=== PATIENT | male | born 1975 | race Caucasian/White ===

== ENCOUNTER → 2017-09-20 | Outpatient (CLI) | payer OTHER ==
[~2017-09-20] MED LIST: ALBIPROI INH; ALBU90OI INH; AMOCLA875 PO; AMOX500 PO; AZIT500 PO; AZOR; Acidophilus La100 GM PO; BP MED; BP MEDICATION; CARI350 PO; CEPH500 PO; CLIN300 PO; CODGUAEL PO; CYCL10 PO; DIAZ5 PO; DOXY100 PO; DOXY100T53 PO; ERYT.5TO OD; GATI5OPSO OD; GENT.3OPSA OD; HYDACE5 PO; HYDACE5325 PO; IBUP600 PO; IBUP800; IBUP800 PO; KETO.5OPSO OD; LISI5 PO; NAPR500 PO; NAPR550 PO; Norco 5-325 Ta1 EACH PO; OXYACE5T PO; OXYACE7.5T PO; OXYC10TA19 PO; PENVK500 PO; PRED10 PO; PRED20 PO; PROM25 PO; RXCEPH500 PO; RXCLIN PO; RXHYD5325 PO; RXHYDACE PO; RXOXYACE PO; SULTRIDS PO; THIA100 PO; TRAM50 PO; Zithromax250 MG PO
[2017-09-20 16:29] LABS: Protein, Urine Quantitative 9.7 mg/dL (0.0-11.9)
[2017-09-20 16:32] LABS: Microalbumin, Urine Quant. 5.34 mg/L (0.000-20.000)
== END | disposition home or self-care (01) ==
LOC: LAB SHORT 05:30 → LAB 05:30 → LAB FUT 09-18 14:55
PROVIDERS: Internal Medicine Nephrology
DX: N18.2 Chronic kidney disease, stage 2 (mild) (principal); D63.1 Anemia in chronic kidney disease; N25.81 Secondary hyperparathyroidism of renal origin; E55.9 Vitamin D deficiency, unspecified; E78.00 Pure hypercholesterolemia, unspecified; R76.8 Other specified abnormal immunological findings in serum; R94.5 Abnormal results of liver function studies; Z90.5 Acquired absence of kidney
CPT/HCPCS: 81050; 82043; 84156

== ENCOUNTER 2018-10-01 13:54 | Emergency (ER) | payer OTHER ==
[~2018-10-01] VITALS: Ht 182.9 cm; Wt 72.6 kg
[2018-10-01] MEDS ORDERED: CYCL10 PO (15:34)
[2018-10-01] MEDS ORDERED: IBUP600 PO (15:34)
[2018-10-01] MEDS ORDERED: Voltaren100 GM TOP (15:34)
== END 2018-10-01 15:47 | disposition home or self-care (01) ==
LOC: ER 13:54
DX: M54.9 Dorsalgia, unspecified (principal); F17.210 Nicotine dependence, cigarettes, uncomplicated
CPT/HCPCS: 72040; 72070; 96372; 99283-25; J1885

== ENCOUNTER 2019-05-08 22:41 | Emergency (ER) | payer OTHER ==
[~2019-05-08] VITALS: Ht 182.9 cm; Wt 70.3 kg
[~2019-05-08 22:41] MED LIST changes: +Voltaren100 GM TOP
[2019-05-08 23:07] LABS: BASOPHILS ABSOLUTE AUTO 0.06 K/mm3 (0.00-0.23); BASOPHILS PERCENT AUTO 1 % (0-2); EOSINOPHILS ABSOLUTE AUTO 0.15 K/mm3 (0.00-0.68); EOSINOPHILS PERCENT AUTO 2 % (0-6); Hematocrit 38.9 % (37.0-53.0); Hemoglobin 12.8 g/dL (13.5-17.5); IMMATURE GRAN ABSOLUTE AUTO 0.02 K/mm3 (0.00-0.10); IMMATURE GRAN PERCENT AUTO 0 % (0-1); LYMPHOCYTES ABSOLUTE AUTO 3.18 K/mm3 (0.84-5.20); LYMPHOCYTES PERCENT AUTO 37 % (21-46); MONOCYTES ABSOLUTE AUTO 1.01 K/mm3 (0.16-1.47); MONOCYTES PERCENT AUTO 12 % (4-13); Mean Corpuscular HGB 29.8 pg (26.0-34.0); Mean Corpuscular HGB Conc 32.9 g/dL (31.5-36.5); Mean Corpuscular Volume 91 fL (80-100); Mean Platelet Volume 9.8 fL (9.1-12.4); NEUTROPHILS ABSOLUTE AUTO 4.14 K/mm3 (1.96-9.15); NEUTROPHILS PERCENT AUTO 48 % (41-73); Platelet Count 266 K/mm3 (150-400); Red Blood Cell Count 4.29 M/mm3 (4.30-5.90); White Blood Cell Count 8.56 K/mm3 (4.00-11.30)
[2019-05-08 23:23] LABS: International Normalized Ratio 0.99; Prothrombin Time Results 10.5 Sec (9.7-11.5)
[2019-05-08 23:28] LABS: Alanine Aminotransfer (ALT/SGP 37 U/L (12-78); Albumin, Blood 3.4 g/dL (3.4-5.0); Alk Phos 99 U/L (50-136); Anion Gap 10 mmol/L (6-16); Aspartate Aminotrans (AST/SGOT 27 U/L (12-37); Bilirubin, Total 0.6 mg/dL (0.1-1.0); Blood Urea Nitrogen 29 mg/dL (8-24); Bun/Creatinine Ratio 18.8 (12.0-20.0); CO2, Blood 23 mmol/L (21-32); Calcium, Blood 8.6 mg/dL (8.5-10.1); Chloride, Blood 109 mmol/L (98-108); Creatinine, Blood 1.54 mg/dL (0.60-1.20); Ethanol (Alcohol), Blood, Med <3 mg/dL; Globulin, Blood 3.3 g/dL (2.2-4.0); Glomerular Filtration Rate 52 (60-); Glucose, Blood 83 mg/dL (70-99); Potassium, Blood 3.7 mmol/L (3.5-5.5); Sodium, Blood 142 mmol/L (136-145); Total Protein, Blood 6.7 g/dL (6.4-8.2)
== END 2019-05-09 01:30 | disposition home or self-care (01) ==
LOC: ER 22:41
PROVIDERS: Emergency Medicine
DX: S09.90XA Unspecified injury of head, initial encounter (principal); S16.1XXA Strain of muscle, fascia and tendon at neck level, initial encounter; S29.9XXA Unspecified injury of thorax, initial encounter; S39.91XA Unspecified injury of abdomen, initial encounter; V59.9XXA Occupant (driver) (passenger) of pick-up truck or van injured in unspecified traffic accident, initial encounter; Z88.5 Allergy status to narcotic agent; N18.9 Chronic kidney disease, unspecified; F17.210 Nicotine dependence, cigarettes, uncomplicated
CPT/HCPCS: 70450; 71260; 72125; 73030; 74177; 80053; 83690; 85025; 85610; 85730; 86850; 86900; 86901; 93005; 93010; 96361; 96374-59; 96375-59; 99285-25; G0480; J2405; J3010; J7030; Q9967

== ENCOUNTER 2019-06-04 10:27 | Emergency (ER) | payer OTHER ==
[~2019-06-04] VITALS: Ht 182.9 cm; Wt 74.8 kg
[2019-06-04] MEDS ORDERED: CYCL10 PO (16:01)
[2019-06-04] MEDS ORDERED: METPRE4DP PO (16:01)
== END 2019-06-04 16:17 | disposition home or self-care (01) ==
LOC: ER 10:27
DX: M54.17 Radiculopathy, lumbosacral region (principal); F17.210 Nicotine dependence, cigarettes, uncomplicated; Z88.5 Allergy status to narcotic agent
CPT/HCPCS: 36415; 72148; 96374; 96375; 99283-25; A9270; J1100; J1885; J2405

== ENCOUNTER → 2025-04-23 | Outpatient (CLI) | payer OTHER ==
[~2025-04-23] MED LIST changes: +METPRE4DP PO
[2025-04-23 15:38] LABS: Microalbumin, Urine Quant. 14.5 mg/L (0.000-20.000); Protein, Urine Quantitative 9.2 mg/dL (0.0-11.9)
== END | disposition home or self-care (01) ==
LOC: LAB 11:56 → LAB SHORT 11:56 → LAB FUT 04-21 12:00
PROVIDERS: Internal Medicine Nephrology
DX: N18.30 Chronic kidney disease, stage 3 unspecified (principal); D63.1 Anemia in chronic kidney disease; N25.81 Secondary hyperparathyroidism of renal origin; E55.9 Vitamin D deficiency, unspecified; E78.00 Pure hypercholesterolemia, unspecified; N40.1 Benign prostatic hyperplasia with lower urinary tract symptoms; R76.9 Abnormal immunological finding in serum, unspecified; R94.5 Abnormal results of liver function studies; D51.8 Other vitamin B12 deficiency anemias; D52.8 Other folate deficiency anemias; D50.9 Iron deficiency anemia, unspecified; R39.9 Unspecified symptoms and signs involving the genitourinary system
CPT/HCPCS: 81050; 82043; 82570; 84156